=== PATIENT | female | born 1995 | race Two or more races ===

== ENCOUNTER 2023-04-01 18:44 | Emergency (ER) | payer OTHER ==
[~2023-04-01] VITALS: Ht 160 cm; Wt 74.5 kg
[2023-04-01] MEDS ORDERED: IBUP-1492 PO (22:24)
[2023-04-01 23:05] VITALS: BP 119/69; PULSE 73; RESP 14; TEMP 98.3
== END 2023-04-01 23:32 | disposition home or self-care (01) ==
LOC: EMS 18:48
DX: S70.12XA Contusion of left thigh, initial encounter (principal); V89.2XXA Person injured in unspecified motor-vehicle accident, traffic, initial encounter; Y93.89 Activity, other specified; Y92.89 Other specified places as the place of occurrence of the external cause; Y99.8 Other external cause status
CPT/HCPCS: 73503; 99284